=== PATIENT | male | born 1945 | race Caucasian/White ===

== ENCOUNTER 2016-08-14 10:05 | Day surgery (SDC) | payer OTHER ==
[~2016-08-14] VITALS: Ht 188 cm; Wt 91.0 kg
--- NOTE | 2016-08-14 07:45 | PCM.HPANE ---
Patient Data Surgeon Admitting Provider: Attending Provider:Celestino Chavez MD Primary Care Physician:John Huddleston MD Other Provider:Neel Thomas Anesthesia Reason for Visit Colon Polyp Ht/WT & BMI Body Mass Index Allergies Coded Allergies: No Known Allergies (Verified Allergy, Unknown, 03/20/16) Past Anesthesia History Anesthesia History: Denies:: Abnormal Airway, Anesthesia Reactions, Difficult Intubation, Fam Anesthesia Reaction, Fam Malignant Hypertherm, Malignant Hyperthermia Diabetes History Hx Diabetes?: No MRSA MRSA: No Medications Blood Thinner: Aspirin Hypertension Medication: Yes Home Meds Incl Beta Andriy: No Reported Medications Hydrochlorothiazide 25 Mg [id number] Mg PO DAILY 30 Days Ref 0 08/13/16 Saw [place] Xtr/Zinc Picolin (Saw [place] Capsule)1 Each Capsule1 Each PO DAILY 08/13/16 Lactobacillus Combo No.11 (Probiotic)1 Each Cap.[email or web address] Each PO DAILY 03/20/16 Aspirin 81 Mg Yggjqu32 Mg PO DAILY Ref 0 03/20/16 Cholecalciferol (Vitamin D3) (Vitamin D)1,000 Unit Capsule1,000 Unit PO DAILY # 1 BOTTLE Ref 0 03/20/16 Multivitamin (Men's Multi-Vitamin)1 Each Tablet1 Each PO DAILY 03/20/16 Cod Liver Oil 1 Each Capsule1 Each PO DAILY 03/20/16 Calcium/Magnesium (Calcium with Magnesium Tab)1 Each Tablet1 Each PO DAILY 03/20/16 History History of ENT Problems?: No HEENT History: Positive for:: Cataracts (KRISTEL CATARACTS 2010) Denies:: Abnormal Airway Difficult Intubation Dysphagia Hearing Problem Sinus Problem TMJ Hx of Heart Problems?: Yes Cardiovascular History: Positive for:: Abdominal Aortic Aneurism (SMALL, INOPERABALE) Denies:: AICD Atrial Fibrillation Cardiac Surgery Chest Pain Congestive Heart Failure Edema Heart Murmur Hypertension Irregular Heartbeat Pacemaker Rheumatic Fever Thrombophlebitis Valvular Heart Disease Hx of Respiratory Problem?: No Respiratory History: Positive for:: Use of C-PAP Machine (MOUTH GUARD AND NOSE STRIPS) Denies:: Asthma COPD Chest Surgery Cough Dyspnea Emphysema Hemoptysis Oxygen Administration Pneumonia Pulmonary Embolism Tuberculosis Hx Neurologic Problems?: No Neurological History: Positive for:: Seizures (NO KNOWN CAUSE) Denies:: Alzheimer's Disease CVA Dementia Dizziness Headaches Multiple Sclerosis Parkinson's Disease Hx of GI Problems?: No Gastrointestinal History: Denies:: Cirrhosis Diverticulitis Gastroesphageal Reflux Gastrointestinal Bleeding Heartburn Hepatitis Hiatal Hernia Rectal Bleeding Hx of Problems?: No Genitourinary History: Positive for:: Kidney Stones (2013? KIDNEY STONE) Denies:: HX of Hemodialysis Urinary Tract Infection HX of Peritoneal Dialysis: No Male Hx: Denies:: Prostate Problems Scrotal Mass Testicular Surgery Skin History: Positive for:: History Skin Disorders? (S/P FACIAL SKIN CA) Denies:: Pressure Ulcers Hx Musculoskeletal Problems?: No Musculoskeletal History: Denies:: Back Injury Degenerative Joint Joint Replacement Musculoskeletal Trauma Systemic Lupus Hx of Psycho/Social Problems?: No Psycho Social History: Denies:: Anxiety Bipolar Disorder Hx Depression Suicide Attempt Hx Surgeries?: Yes (KIDNEY STONE 2012, KRISTEL INGUINAL HERNIA, COLONOSCOPY) Hx Any Other Health Problems?: No Other History: Positive for:: Hospitalization (KIDNEY STONE 2012, KRSITEL INGUINAL HERNIA, COLONOSCOPY, KRISTEL CATARACTS) Denies:: Cancer Endocrine Disease Thyroid Disease History Blood Transfusions: Denies:: Blood Transfuse Reaction Blood Transfusions Hx Diabetes: No Hx Alcohol Use: Yes (SOCIALLY WINE)Hx Substance Use: NoHave You Smoked inLast 12 mo: No Stop/Bang Treated for Sleep Apnea?: Yes Do You Have a CPAP Machine?: No KUSH Risk Assessment: Low Risk, <3 Yes KUSH Category 4 OutPt Procedure: Yes Risk Assessment Category Category 1A: Patient has history of documented sleep apnea, and HAS NOT received any narcotic, sedative or anesthesia administration during this stay. Category 1B: Patient has history of documented sleep apnea, and HAS received any narcotic , sedative or anesthesia administration during this stay Category 2: Patient has SUSPECTED Obstructive Sleep Apnea, and HAS received any narcotic , sedative or anesthesia administration during this stay. Category 3: Patient has SUSPECTED Obstructive Sleep Apnea and HAS NOT received narcotic, sedative or anesthesia administration during this stay. Category 4: Outpatient in Procedural Areas with known sleep apnea or who screen positive for High Risk via the STOP/BANG questionnaire. Exam Exam General Appearance: Alert, Oriented X3, Cooperative, No Acute Distress HEENT/AIRWAY: MP 2 Lungs: Clear to Auscultation, Normal Air Movement Heart: Exam Unremarkable, Regular Rate/Rhythm, No Murmurs/Rubs/Gallops Plan Impression Patient chart reviewed, patient interviewed and anesthestic plan with risks, benefits, and alternatives discussed, and informed consent obtained. NPO Status: clears sips water to 1100 ASA Physical Status: ASA2 Mod Systemic Disease Anesthetic Plan: MAC Bene/Risks/Altern/Consents: Yes HP Complete Prior to Induction: Yes Danial Harry MD Aug 14, 2016 07:45
[~2016-08-14 10:05] MED LIST: ASPI-973 PO; CALC-56 PO; CHOL100045 PO; COD1CAPS6 PO; HYDR25TA4 PO; LACT1CAP73 PO; Lactated Ringer's 1,000 ML IV ONE; MULT-544 PO; SAWP1CAP PO
[2016-08-14] MEDS ORDERED: fentaNYL-PF 50 mCg/mL 2 mL Inj ONE (10:06)
[2016-08-14] MEDS ORDERED: Propofol 10,000 mCg/mL 20 mL Inj ONE (10:06)
[2016-08-14] MEDS ORDERED: Ketamine 10 mg/mL 20 mL Inj ONE (10:06)
[2016-08-14 10:20] VITALS: BP 149/92; PULSE 65; RESP 14; O2SAT 97
[2016-08-14] MEDS ORDERED: Ondansetron 2 mg/mL 2 mL Inj IVPUSH PRN (10:40)
[2016-08-14] MEDS ORDERED: Lactated Ringer's 1,000 ML IV SCH (10:40)
[2016-08-14] MEDS ORDERED: MetoCLOpramide 5 mg/mL 2 mL Inj IVPUSH PRN (10:40)
[2016-08-14 11:20] VITALS: BP 133/78; PULSE 77; RESP 14; O2SAT 98
[2016-08-14 11:30] VITALS: BP 127/77; PULSE 60; RESP 12; O2SAT 97
--- NOTE | 2016-08-14 13:01 | PCM.ANEP1 ---
Post Anesthesia Phase 1 PACU Phase 1 Assessment Vital Signs Vital Signs Date Time Temp Pulse Resp B/P Pulse Ox O2 Delivery O2 Flow Rate FiO2 08/14/16 11:30 60 12 127/77 97 Room Air 08/14/16 11:20 36.7 77 14 133/78 98 Room Air 08/14/16 10:20 65 14 149/92 97 Room Air Anesthetic Administered: MAC Level of Alertness: Awake, talking ROMAN's with Equal Strength: Yes Pain: No Nausea or Vomiting: No Oxygen Delivery: Nasal Cannula Lungs: Clear to Auscultation, Normal Air Movement Dermatome Level: Full Sensation Danial Harry MD Aug 14, 2016 13:01
--- NOTE | 2016-08-14 13:01 | PCM.ANEP2 ---
Post Anesthesia Evaluation ASA/CMS Post Anesthesia VS in Patient's Normal Range?: Yes Resp Stable; Airway Patent?: Yes CV Function & Hydration Stable: Yes Mental Status Recovered?: Yes Pain control Satisfactory?: Yes N/V Control Satisfactory?: Yes Danial Harry MD Aug 14, 2016 13:01
--- NOTE | 2016-08-14 16:29 | ENDO ---
[address] [address] ENDOSCOPY PROCEDURE PATIENT: ELVA CEDENO : 1945 MR#: [id number] ADMIT: 08/14/2016 JOB ID: [id number] PRIMARY PROVIDER: John Huddleston MD. PROCEDURE: Colonoscopy with hot snare polypectomy and cold forceps polypectomy. INDICATIONS: A 70-year-old male with a family history of colon cancer and a personal history of colon polyps returning for surveillance. EQUIPMENT: [id number] SEDATION: Monitored anesthesia as provided by Dr. Danial Harry. COMPLICATIONS: None identified. Bowel prep fair. Adequate exam. PROCEDURE INFORMATION: After the risks and benefits were explained, written and verbal informed consent was obtained, the patient was brought into the endoscopy suite and placed into the left lateral decubitus position. Sedation was achieved using the above-stated medications with the addition of oxygen via nasal cannula. A digital rectal examination was accomplished. No significant pathology appreciated. The scope was introduced into the rectum and advanced to the cecum as identified by the appendiceal orifice and ileocecal valve. The scope was slowly withdrawn to carefully examine the mucosa for any defects or lesions. Retroflexed views were avoided in the rectum. Multiple direct views were made through the dentate line for exclusion of pathology. The colon was decompressed. The scope removed from the patient who tolerated the procedure well. FINDINGS: There was a very diminutive polyp in the cecum, perhaps 2 mm, removed with cold forceps. This was not retrieved. There were three other polyps in the transverse and left colon. The largest was perhaps about 7 or 8 mm, the smallest about 6 mm. Hot snare was utilized for all three of these. No other significant pathology was appreciated throughout. ENDOSCOPIC DIAGNOSES: 1. Multiple colon polyps. 2. Lengthy, rather redundant colon (not mentioned above). RECOMMENDATIONS: 1. Await histopathology. 2. Repeat colonoscopy in three years.
--- NOTE | 2016-08-15 11:05 | PATH ---
SURGICAL PATHOLOGY Attending Physician:Charlee Kohler CASE STATUS: Signed Out PATIENT NAME: ELVA CEDENO PID: [id number] : 1945 DATE COLLECTED:08/14/2016 17:20 SPECIMEN: Colon, Biopsy CLINICAL HISTORY: 1). 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 ICD10 CODE D12.6 GROSS DESCRIPTION: The specimen is received in one formalin filled container labeled with the patient's name, sublabeled "colon polyps" consists of 3 portions of tissue which aggregate to 0.8-0.5 x 0.5 CM. The specimen is entirely submitted in one cassette. 08/14/2016 DAC MICRO DESCRIPTION: See diagnosis. ICD-9 CODES: CPT CODES: 1: 80251 Electronically Signed Out Celestino Bettencourt MD [facility] [address], [place] [address] Technical component performed at [facility], [facility] [address], [address]
== END 2016-08-14 23:59 | disposition home or self-care (01) ==
LOC: END 10:05
PROVIDERS: ATTEND Internal Medicine Gastroenterology
DX: Z12.11 Encounter for screening for malignant neoplasm of colon (principal); D12.0 Benign neoplasm of cecum; D12.3 Benign neoplasm of transverse colon; Q43.8 Other specified congenital malformations of intestine; Z80.0 Family history of malignant neoplasm of digestive organs; Z86.010 Personal history of colon polyps; Z79.82 Long term (current) use of aspirin; Z79.899 Other long term (current) drug therapy
CPT/HCPCS: 45380; 45385; J2250; J3010; J7120